=== PATIENT | male | born 1940 | race Caucasian/White ===

== ENCOUNTER 2019-03-28 13:56 | Emergency (ER) | payer OTHER, SELFPAY ==
[2019-03-28 14:09] VITALS: BP 143/84; PULSE 57; RESP 16; TEMP 37.2; O2SAT 98; BMI 27.2
--- NOTE | 2019-03-28 14:13 | DI.RAD.S_ITS ---
PROCEDURE: XR ANKLE RT MIN 3V INDICATIONS: pain, difficulty walkin TECHNIQUE: A 3 views of the ankle were acquired. COMPARISON: None. FINDINGS: Bones: No fractures or dislocations. Ankle mortise is normally aligned. No suspicious bony lesions. Soft tissues: No tibiotalar joint effusion. Achilles tendon appears normal. IMPRESSION: No trauma found, no significant degenerative change identified. Dictated by: Geovany James M.D. on 03/28/2019 at 14:37 Approved by: Geovany James M.D. on 03/28/2019 at 14:38
--- NOTE | 2019-03-29 00:24 | ED_ITS ---
HPI - Extremity Injury (Lower) <GINNY Mendez - Last Filed: 03/29/19 00:42> General Chief Complaint: Extremity Injury, Lower Stated Complaint: RIGHT ANKLE SORE,HARD TO WALK Time Seen by Provider: 03/28/19 16:58 Source: patient Mode of arrival: Ambulatory Limitations: no limitations History of Present Illness HPI Narrative: This is a 79-year-old male, nonsmoker, who presents with spouse with chief complain of right anterior lateral foot pain since yesterday. Patient denies any trauma or injury to recall. Patient noticed pain when he pushes off right foot to ambulate or climbs stairs. Patient is very active and plays tennis frequently. Patient denies weakness, tingling or numbness to affected foot. Related Data Home Medications Medication Instructions Recorded Confirmed bupropion HCl [Wellbutrin XL] 150 mg PO QDAY #30 tab 05/05/16 Allergies Allergy/AdvReac Type Severity Reaction Status Date / Time No Known Drug Allergies Allergy Verified 03/28/19 16:49 Review of Systems <GINNY Mendez - Last Filed: 03/29/19 00:42> Review of Systems ROS Unobtainable: All systems reviewed & are unremarkable except as noted in HPI and below PFSH <GINNY Mendez - Last Filed: 03/29/19 00:42> Surgical History History of knee surgery (Acute) History of shoulder surgery (Acute) History of umbilical hernia repair (Acute) Social History Smoking Status: Never smoker Social History Smoking Status: Never smoker Exam <GINNY Mendez - Last Filed: 03/29/19 00:42> Narrative Exam Narrative: General appearance: well developed, well nourished, in no acute distress. Head: normocephalic, atraumatic, no scalp lesions, non-tender. Eye: pupil equal, round. EOMI. Nose: nares patent. Oral: mucosa moist. Neck/Thyroid: neck supple, full range of motion, no visible masses. Skin: no suspicious rashes, lesions over visible areas. Warm and dry. Heart: no clubbing, no cyanosis, no edema. Lungs: Breathing even and unlabored. No stridor. No accessory muscles used. Chest: normal shape and expansion. Abdomen: non-obese, non-distended. Neurologic: alert and oriented. Cognitive exam, [employer] and PNS grossly intact on informal exam. Psych: good eye contact, normal affect. Initial Vital Signs Initial Vital Signs: Vital Signs Temperature 99 F 03/28/19 14:09 Pulse Rate 57 L 03/28/19 14:09 Respiratory Rate 16 03/28/19 14:09 Blood Pressure 143/84 H 03/28/19 14:09 Pulse Oximetry 98 03/28/19 14:09 Extrem Right upper extremity: normal to inspection and full ROM Left upper extremity: normal to inspection and full ROM Right lower extremity: knee Details: normal to inspection, normal ROM and knee ligament exam normal; no tenderness, no swelling, no deformity and no unusual warmth, ankle Details: normal to inspection, no edema and normal ROM; no tenderness and foot Details: normal capillary refill, normal to inspection, toes with normal ROM, no edema, vascular exam Details: dorsalis pedis pulse present, posterior tibial pulse present and normal capillary refill, tendon exam Details: active flexion normal and active extension normal and motor-sensory exam Details: light-touch normal; no unusual warmth, no abrasion, no laceration, no ecchymosis, no crepitus and no puncture wound Left lower extremity: normal to inspection and full ROM <Luis Grullon DO - Last Filed: 03/29/19 09:10> Initial Vital Signs Initial Vital Signs: Vital Signs Temperature 99 F 03/28/19 14:09 Pulse Rate 57 L 03/28/19 14:09 Respiratory Rate 16 03/28/19 14:09 Blood Pressure 143/84 H 03/28/19 14:09 Pulse Oximetry 98 03/28/19 14:09 Procedures <GINNY Mendez Last Filed: 03/29/19 00:42> Orthopedic Splinting/Casting Injury #1: Side: right Lower Extremity Injury Location: foot Lower Extremity Immobilizer: Ben wrap Post splinting neuro exam: intact Post splinting vascular exam: intact Placed by: Nursing Scores <GINNY Mendez Last Filed: 03/29/19 00:42> GCS [place] coma scale eye opening: Spontaneous [place] coma scale verbal response: Orientated Helene coma scale motor response: Obey commands Helene coma scale total score: 15 MDM - Extremity Injury (Lower) <GINNY Mendez - Last Filed: 03/29/19 00:42> Differential Diagnosis Differential diagnosis: Likely ankle sprain and strain and other (Foot sprain, foot fracture,) Medical Records Attestation: I reviewed the patient's medical records. Imaging Data XR-Ankle R: Radiologist's impression: [address] [address] XRay Report Signed Patient: Jonathan Quintero [facility]#: [id number] : 1940Acct:[id number] Age/Sex: 79 / MDate of Service: 03/28/19 Loc: ED Accession Number: [id number] Procedure: XR ankle RT min 3V Ordering Provider: Luis Grullon D.O. PROCEDURE: XR ANKLE RT MIN 3V INDICATIONS: pain, difficulty walkin TECHNIQUE: A 3 views of the ankle were acquired. COMPARISON: None. FINDINGS: Bones: No fractures or dislocations. Ankle mortise is normally aligned. No suspicious bony lesions. Soft tissues: No tibiotalar joint effusion. Achilles tendon appears normal. IMPRESSION: No trauma found, no significant degenerative change identified. Dictated by: Geovany James M.D. on 03/28/2019 at 14:37 Approved by: Geovany James M.D. on 03/28/2019 at 14:38 [facility] Narrative Medical decision making narrative: This is a 79-year-old gentleman who came in to ED with right foot/ankle pain with ambulation since yesterday. Patient unable to recall injury or trauma to affected foot or ankle. There is no edema, redness, ecchymosis to be seen. Neurovascular exam was intact on affected foot. Patient is able to move his foot against resistance. X-ray test on right ankle but not show any acute findings such as fractures, effusion or dislocation. Patient is very active and plays tennis regularly. Patient advised to use RICE therapy and applied Ben wrap on affected foot and ankle for support. Patient reports Ben wrap was helping with discomfort after applied. Ice pack was provided for home use. Patient declines Tylenol or Motrin while in ED. Patient advised to follow with his primary care physician in [facility] next week and return precautions were discussed. No further questions were expressed and patient and spouse agree with treatment plan and ambulatory out ED in stable gait. Discharge Plan Departure Patient Disposition: Home Clinical Impression: Foot sprain Qualifiers: Encounter type: initial encounter Laterality: right Qualified Code(s): S93.601A - Unspecified sprain of right foot, initial encounter Discharge Date/Time: 03/28/19 17:22 Instructions: DI for Foot Sprain Activity Restrictions/Additional Instructions: You have been diagnosed with [right dorsal foot sprain. The x-ray test shows no acute findings today. Please use RICE therapy such as rest, ice, compression and elevation for next couple of days. Use Ben wrap for comfort next several days if this helps with discomfort.]. What to do: *Take your medications as directed. You can take [id number] Tylenol and or Motrin as needed for discomfort. If you take Motrin please take it with food to decrease stomach irritation. *Follow up with your primary care provider in 2-3 days, call for an appointment. Let them know you were seen in the ED and that we asked you to be seen in follow up. *Return to ED if you have any new, worsening, or concerning symptoms, such as [tingling/numbness/weakness to right foot, significant swelling and pain, chest pain, breathing difficulty, unable to tolerate fluids, or any acute concerns]. Prescriptions: No Action bupropion HCl [Wellbutrin XL] 150 MG tablet extended release 24 hr 150 mg PO QDAY Qty: 30 RF: 0 Referrals: Inder Acosta [Non-Staff] - Carlos Malhotra MD [Primary Care Provider] -
== END 2019-03-28 17:22 | disposition home or self-care (01) ==
PROVIDERS: Emergency Provider Nurse Practitioner Family; PCP Family Medicine
DX: S93.601A Unspecified sprain of right foot, initial encounter (principal)
CPT/HCPCS: 73610; 99282; 99283